=== PATIENT | male | born 1970 | race Caucasian/White ===

== ENCOUNTER 2024-11-13 19:48 | Emergency (ER) | payer OTHER, SELFPAY ==
[2024-11-13] VITALS (12 sets, daily range): BP systolic 103–155; BP diastolic 63–98; PULSE 97–116; RESP 14–23; TEMP 37; O2SAT 92–100; BMI 39.5
--- NOTE | 2024-11-13 20:10 | RAD_ITS ---
PROCEDURE: CHEST 1 VIEW (PORTABLE) 11/13/2024 REASON FOR EXAM: CHEST PAIN TECHNIQUE: Frontal view of the chest. COMPARISON: None. FINDINGS: Hardware: Partially visualized ACDF hardware. Heart: The heart size is normal. Lungs: Elevation of the right hemidiaphragm. No focal consolidation, pleural effusion or pneumothorax. Bones: Degenerative changes are identified within the thoracic spine. RAD/Chest 1 View (Portable) IMPRESSION: No Acute Findings. Reading Location: [id number]
--- NOTE | 2024-11-13 20:14 | EKG12_ITS ---
Test Reason : CP Blood Pressure : */* mmHG Vent. Rate : 110 BPM Atrial Rate : 110 BPM P-R Int : 142 ms QRS Dur : 94 ms QT Int : 332 ms P-R-T Axes : 56 57 62 degrees QTcB Int : 449 ms Sinus tachycardia Otherwise normal ECG Confirmed by Rafi Huddleston ([id number]), offline editor JONNA VICENTE ([id number]) on 11/16/2024 11:51:44 AM Referred By: Confirmed By: Rafi Huddleston
--- NOTE | 2024-11-13 20:20 | PCA ---
no old ekg
[2024-11-13 20:35] LABS: Absolute Neutrophil Count 4.2 X10^3/uL (2.0-7.7); Basophil# 0.04 X10^3/uL; Basophil% 0.5 % (0-1); Eosinophil# 0.23 X10^3/uL; Eosinophils% 3.2 % (0-5); Hematocrit 41.8 % (40-54); Hemoglobin 14.9 g/dL (13.0-16.5); Lymphocyte % 30.2 % (19-41); Mean Corp Hgb Conc 35.6 g/dL (32-36); Mean Corpuscular Hgb 29.9 pg (27.0-32.0); Mean Corpuscular Volume 83.9 fL (80-94); Mean Platelet Vol. 9.9 fl (6.2-12.0); Monocyte% 8.2 % (0-10); NRBC Flagged by Analyzer 0 % (0-5); Neutrophil # 4.18 X10^3/uL (2.7-7.7); Neutrophil % 57.5 % (47-70); Platelet Count 313 K/mm3 (150-450); RBC Distribution Width CV 12.1 % (11.6-14.6); RBC Distribution Width SD 36.6 fl (35.1-43.9); Red Blood Count 4.98 M/mm3 (4.6-6.2); White Blood Count 7.3 K/mm3 (4.4-11.0)
[2024-11-13 20:39] LABS: Anion Gap 18 (5-15); BUN 12 mg/dL (4-19); BUN/Creat Ratio 11.5 RATIO (10-20); Calcium,Total 9.3 mg/dL (7.6-11.0); Carbon Dioxide 21.2 mmol/L (21.0-32.0); Chloride 101 mmol/L (98-108); Creatinine, Serum 1.03 mg/dL (0.70-1.20); EST Glomerular Filtration Rate 87 (>60); Estimated Creatinine Clearance 106.81 ml/min (50-250); Glucose 176 mg/dL (70-99); Potassium 4.2 mmol/L (3.3-5.1); Sodium Level 140 mmol/L (133-145); Troponin T High Sensitivity < 6 ng/L (<=22)
--- NOTE | 2024-11-13 21:28 | CT_ITS ---
PROCEDURE: CTA CHEST W/WO CONTRAST 11/13/2024 REASON FOR EXAM: PULMONARY EMBOLISM TECHNIQUE: CTA axial imaging of the chest with intravenous contrast. Coronal and Sagittal reconstruction series were provided. 3D, 3D post processing, 3D reconstructions, Maximum intensity projection (MIPs) Volume rendering and Shaded surface rendering was provided. PATIENT PREPARATION: Per protocol CONTRAST: Isovue 370 VOLUME: 100mL One or more dose reduction techniques were used (e.g., Automated exposure control, adjustment of the mA and/or kV according to patient size, use of iterative reconstruction technique). RADIATION DOSE SUMMARY: DLP: 3000 mGycm COMPARISON: None. FINDINGS: Hardware: Partially visualized ACDF hardware. Lymph nodes: No axillary, mediastinal or hilar lymphadenopathy. Heart: Normal in size without pericardial effusion. The great vessels are normal in caliber. Minimal coronary artery calcifications. Minimal calcific plaque of the thoracic aorta. Pulmonary Vessels: Visualization is limited by timing of contrast bolus. No central filling defect within the segmental pulmonary arteries. Lungs and Airways: The central airways are patent. Bibasilar atelectasis/scarring. No suspicious pulmonary nodule. No pleural effusion or pneumothorax. Upper Abdomen: Prior cholecystectomy. Bones: Bone windows are unremarkable. CT/CTA Chest W/WO Contrast IMPRESSION: LIMITED. NO LARGE CENTRAL PULMONARY EMBOLI. Reading Location: [id number]
--- NOTE | 2024-11-13 21:28 | CT_ITS ---
PROCEDURE: CTA HEAD AND NECK W/ CONTRAST 11/13/2024 REASON FOR EXAM: HEADACHE/R ARM/LEG NUMBNESS TECHNIQUE: CTA HEAD AND NECK W/ CONTRAST Multiplanar Sagittal and Coronal images were obtained. 3D post processing was performed CONTRAST: Isovue 370 VOLUME: 100 mL One or more dose reduction techniques were used (e.g., Automated exposure control, adjustment of the mA and/or kV according to patient size, use of iterative reconstruction technique). RADIATION DOSE SUMMARY: DLP: 900 mGycm COMPARISON: None. FINDINGS: Non-contrast CT head: No acute intracranial hemorrhage or herniation. Minimal scattered supratentorial white matter hypodensities. The mohr-white matter interfaces are otherwise maintained. No ventriculomegaly. The basal cisterns are patent. Unremarkable bilateral orbits, paranasal sinuses and mastoid air cells. No acute calvarial fracture or scalp hematoma. CTA neck: Three-vessel aortic arch with moderate mixed atherosclerotic plaque of the left subclavian artery approximately 1.5 cm distal to its origin. The right cervical carotid artery is widely patent without focal narrowing by NASCET criteria. Moderate mixed plaque of the left cervical ICA resulting in 50% stenosis by NASCET criteria. Visualization of the bilateral vertebral arteries is limited due to streak artifact from ACDF hardware. The right vertebral artery is grossly patent without obvious stenosis or narrowing. Occlusion of the left vertebral artery just distal to its origin, with non-opacification throughout the majority of the left V2 segment. Severe multifocal stenosis with alternating areas of thread-like opacification throughout the distal V2-V4 segments. CTA head: The bilateral anterior, middle and posterior cerebral arteries are widely patent. Visualization of the more distal arteries is limited by timing of contrast bolus. Major venous structures: Unremarkable. Other findings: Cervical spondylosis with prior ACDF hardware. Prominent bilateral cervical nodes, likely reactive. CT/CTA Head AND Neck W/ Contrast IMPRESSION: 1. No acute finding on noncontrast CT head. 2. 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 If clinically indicated, MRI head could be obtained for further evaluation. 3. At least 50% stenosis of the left cervical ICA by NASCET criteria. 4. Moderate narrowing of the left subclavian artery just distal to its origin. Reading Location: [facility]
[2024-11-13 21:53] LABS: Mucous, Urine 0 SEEN /hpf (<or=2+); Red Blood Cells-Urine 0 SEEN /hpf (0-5)
[2024-11-13 21:56] LABS: AST(SGOT) 41 U/L (<=37); Alanine Aminotransfer ALT/SGPT 35 U/L (<=46); Albumin, Serum 4.3 g/dL (3.5-5.0); Alkaline Phosphatase 119 U/L (40-129); Globulin 2.9 g/dL (2.2-4.2); Protein, Total 7.2 g/dL (5.9-8.4); Total Bilirubin 0.28 mg/dL (0.00-1.30)
[2024-11-13 22:09] LABS: Alcohol, Blood (Medical)-Serum < 10.1 mg/dL (<=10.0)
[2024-11-13 22:09] LABS: Amphetamine Urine NEGATIVE (<1000 ng/mL); Barbiturate Urine NEGATIVE (< 200 ng/mL); Benzodiazepine Urine NEGATIVE (< 200 ng/mL); Buprenorphine Urine NEGATIVE (< 200 ng/mL); Cocaine Urine NEGATIVE (< 300 ng/mL); Fentanyl, Urine NEGATIVE; Methadone Urine NEGATIVE (< 300 ng/mL); Opiates Urine NEGATIVE (< 300 ng/mL); Oxycodone, Urine NEGATIVE (< 100 ng/mL); PCP Urine NEGATIVE (< 25 ng/mL); THC Urine NEGATIVE (< 50 ng/mL)
[2024-11-13 22:11] LABS: Color, Urine Yellow (Yellow); Glucose, Dipstick Normal (Normal); Ketone-Dipstick 50 mg/dl (Negative); Leukocyte Esterase-Dipstick Negative /ul (Negative); Nitrite-Dipstick Negative (Negative); Occult Blood-Urine Negative /ul (Negative); Protein-Dipstick 15 mg/dl (Negative); Urine Bilirubin Dipstick Negative (Negative); Urine Clarity Clear (Clear); Urine Urobilinogen Normal (Normal)
[2024-11-13 22:17] LABS: Magnesium 1.9 mg/dL (1.5-2.2)
[2024-11-13 22:27] LABS: Pro- Brain NATRIURETIC PEPTIDE < 36 pg/mL (<=900)
[2024-11-13 22:32] LABS: Bacteria 1+ /hpf (None Seen); Squamous Epithelial Cells - UA 0-5 SEEN /hpf (0-5); White Blood Cells 0-5 SEEN /hpf (0-5)
[2024-11-13 22:39] LABS: Troponin T High Sens 2 HR < 6 ng/L (<=22)
--- NOTE | 2024-11-14 00:18 | EX.ED.DYSGE1 ---
HPI History of Present Illness Chief Complaint: Chest Pain Informant: patient, spouse/S.O. and family Narrative Narrative: 54-year-old male presenting to the emergency room with a chief complaint of right arm and leg paresthesias and swelling. Patient has was visiting the area doing some camping and he lives in the [facility]. States the was having a normal weekend. This morning he hydrated quite well. [place] the [place]. Drank approximately 10 beers. Went back to the camper and was on his way to friends for dinner he began to have tingling in his right arm and right leg. Patient states that his hands feel significantly swollen when he did take his wedding ring off. No swelling of his feet. He denies any arm or leg weakness. No speech difficulties. He notes he chronically has some back discomfort but is not any different than normal. No specific chest pain or shortness of breath. He notes his heart rate and blood pressure are elevated. [facility] Medical History Scarring of lung Allergy/AdvReac Type Severity Reaction Status Date / Time No Known Allergies Allergy Verified 11/13/24 19:49 Social History Smoking Status: Never smoker ROS ROS ED Constitutional Constitutional ED: Denies chills, fever(s) or weight loss Eyes Eyes: Denies change in vision or diplopia ENT ENT ED: Denies ear pain, rhinorrhea or sore throat Cardiovascular Cardiovascular: Reports racing heartbeat; Denies chest pain, orthopnea or palpitations Respiratory/Chest Respiratory/Chest: Denies cough, dyspnea or orthopnea Gastrointestinal Gastrointestinal: Denies abdominal pain, diarrhea, nausea or vomiting Genitourinary Genitourinary ED: Denies dysuria, hematuria or urinary frequency Musculoskeletal Musculoskeletal: Reports other Details: Arm and leg swelling ; Denies arthralgias or myalgias Integumentary Denies abscess or rash Neurologic Neurologic: Reports paresthesias; Denies headache(s) or weakness Psychiatric Psychiatric: Denies anxiety, depression, suicidal ideation or suicidal thoughts Endocrine Endocrinology: Denies polydipsia, polyphagia or polyuria Allergic/Immunologic Allergic/Immunologic ED: Denies mouth swelling, tongue swelling or urticaria EXAM Physical Exam Const Vital Signs: 11/13/24 19:49 11/13/24 20:06 11/13/24 20:16 Temperature 98.6 F Temperature Source Oral Pulse Rate 116 H Respiratory Rate 18 Respiratory Pattern Normal Blood Pressure 148/98 H Blood Pressure Mean 114 Pulse Ox 96 Oxygen Delivery Method Room Air Room Air 11/13/24 20:43 11/13/24 20:45 11/13/24 21:00 Temperature Temperature Source Pulse Rate 97 105 H 107 H Respiratory Rate 14 20 H 17 Respiratory Pattern Blood Pressure 152/83 H 147/82 H Blood Pressure Mean 100 99 Pulse Ox 92 96 95 Oxygen Delivery Method 11/13/24 21:30 11/13/24 21:30 11/13/24 21:45 Temperature Temperature Source Pulse Rate 108 H Respiratory Rate 17 Respiratory Pattern Blood Pressure 155/73 H 155/73 H 103/63 Blood Pressure Mean 95 95 76 Pulse Ox 100 Oxygen Delivery Method 11/13/24 21:45 11/13/24 22:00 11/13/24 22:15 Temperature Temperature Source Pulse Rate 112 H 108 H Respiratory Rate 23 H 20 H Respiratory Pattern Blood Pressure 103/63 139/70 H 151/76 H Blood Pressure Mean 76 87 94 Pulse Ox 95 96 Oxygen Delivery Method 11/13/24 22:30 11/13/24 22:45 11/13/24 23:00 Temperature Temperature Source Pulse Rate 104 H 100 Respiratory Rate 19 H 21 H Respiratory Pattern Blood Pressure 142/71 H 147/73 H 138/78 H Blood Pressure Mean 90 92 95 Pulse Ox 95 95 Oxygen Delivery Method 11/13/24 23:37 Temperature 98.6 F Temperature Source Pulse Rate 100 Respiratory Rate 16 Respiratory Pattern Blood Pressure 154/78 H Blood Pressure Mean 103 Pulse Ox 99 Oxygen Delivery Method Positive well nourished and well developed General Appearance ED: well developed HEENT Reports normocephalic, head/scalp atraumatic and moist mucous membranes Eyes PERRL and EOMs intact bilaterally Neck no lymphadenopathy, supple and no JVD Resp normal respiratory effort and clear to auscultation bilaterally Cardio regular rate, regular rhythm and no murmurs Rate: tachycardic GI normal to inspection, nondistended, normoactive bowel sounds and non-tender Palpation: soft Back/Spine no CVA tenderness and normal ROM Extremity General Extremety ED: Yes edema General Extremity: edema bilateral (Nonpitting edema is noted) upper extremity and lower extremity Neuro oriented x3, CN's II-XII intact bilaterally and no sensory deficits noted Neuro Narrative: NIH is 0 Sensorium / Orientation: alert Motor Exam: strength 5/5 throughout Psych mental status grossly normal Mood & Affect: Negative for depressed or tearful Skin no rashes or lesions noted and no wounds MDM MDM MDM Narrative Medical decision making narrative: Differential diagnosis includes but not limited to aortic dissection carotid dissection aneurysm intracranial hemorrhage/hematoma electrolyte abnormalities acute kidney injury CHF Basic blood work was obtained essentially negative. Glucose is noted to be elevated at 176. 2 sets of cardiac enzymes are negative. BNP is 36. Normal electrolytes. Urinalysis with 50 ketones no overt infection. Urine toxicology is negative. Ethyl alcohol level is 10.1. My independent interpretation of the chest x-ray is no acute process. CTA of the chest and CTA of the head and neck was obtained read by radiology reviewed by myself. I do not see an obvious cause for the patient's symptomology off of those images. I spoke with the patient and his family. He is doing well. I do wonder if in the process of hydrating and then consuming 10 beers if he had fluid shifts and is resulting in edema and this was resulting in the paresthesias. I do not feel strongly he needs to aggressively diurese. I would recommend no further alcohol and resuming a normal diet low in salt. Patient is comfortable with this plan. I urged them that if he would develop new or worsening or concerning symptoms to seek evaluation in the emergency department setting. He is planning on following up with his primary care doctor later this week. Patient, his , and family are comfortable with this plan. History & Record Review Discussion w/independent historian: Patient and Family Additional record(s) reviewed:: No prior records Lab Data Attestation: I reviewed the patient's lab results. Labs: Laboratory Results - last 24 hr 11/13/24 11/13/24 11/13/24 20:10 21:35 22:15 WBC 7.3 RBC 4.98 Hgb 14.9 Hct 41.8 MCV 83.9 MCH 29.9 MCHC 35.6 RDW Std Deviation 36.6 RDW Coeff of [place] 12.1 Plt Count 313 MPV 9.9 Immature Gran % (Auto) 0.400 Neut % (Auto) 57.5 Lymph % (Auto) 30.2 [place] % (Auto) 8.2 Eos % (Auto) 3.2 Baso % (Auto) 0.5 Absolute Neuts (auto) 4.2 Absolute Lymphs (auto) 2.20 Nucleated RBC % 0 Sodium 140 Potassium 4.2 Chloride 101 Carbon Dioxide 21.2 Anion Gap 18 H BUN 12 Creatinine 1.03 Estim Creat Clear Calc 106.81 Est GFR (MDRD) Non-Af 87 BUN/Creatinine Ratio 11.5 Glucose 176 H Calcium 9.3 Magnesium 1.9 Total Bilirubin 0.28 Direct Bilirubin 0.10 AST 41 H ALT 35 Alkaline Phosphatase 119 Troponin T High Sens < 6 Troponin T Hi Sens 2 Hr < 6 NT pro BNP II < 36 Total Protein 7.2 Albumin 4.3 Globulin 2.9 Urine Color Yellow Urine Clarity Clear Urine pH 6.0 Ur Specific [place] 1.020 Urine Protein 15 H Urine Glucose (UA) Normal Urine Ketones 50 H Urine Occult Blood Negative Urine Nitrite Negative Urine Bilirubin Negative Urine Urobilinogen Normal Ur Leukocyte Esterase Negative Urine RBC 0 SEEN Urine WBC 0-5 SEEN Ur Squamous Epith Cells 0-5 SEEN Urine Bacteria 1+ Urine Mucus 0 SEEN Urine Opiates Screen NEGATIVE U Buprenorphine Qual NEGATIVE Ur Oxycodone Screen NEGATIVE Urine Methadone Screen NEGATIVE Urine Fentanyl Screen NEGATIVE Ur Barbiturates Screen NEGATIVE Ur Phencyclidine Scrn NEGATIVE Ur Amphetamines Screen NEGATIVE U Benzodiazepines Scrn NEGATIVE Urine Cocaine Screen NEGATIVE U Cannabinoids Screen NEGATIVE Ethyl Alcohol < 10.1 Radiography Diagnostic Testing: Clinical Impression(s) from Imaging Studies Chest X-Ray 11/13/24 20:10 IMPRESSION: No Acute Findings. Reading Location: [facility] Chest CTA 11/13/24 21:28 IMPRESSION: LIMITED. NO LARGE CENTRAL PULMONARY EMBOLI. Reading Location: [facility] Head/Neck CTA 11/13/24 21:28 IMPRESSION: 1. No acute finding on noncontrast CT head. 2. Multifocal stenosis and occlusion of the left vertebral artery throughout the V2-V4 segments, indeterminate in chronicity. If clinically indicated, MRI head could be obtained for further evaluation. 3. At least 50% stenosis of the left cervical ICA by NASCET criteria. 4. Moderate narrowing of the left subclavian artery just distal to its origin. Reading Location: [facility] EKG Initial EKG: Attestation: I personally reviewed and interpreted this EKG as follows: Comments: Sinus tachycardia 110 bpm. Discharge Plan Triage Chief Complaint: Chest Pain ED Provider: Chris Connell Dx/Rx/DC Orders Clinical Impression: Paresthesias, Edema, peripheral Instructions: ED Peripheral Edema, Bilateral, ED Paraesthesias Primary Care Provider: Care Physician,No Primary Referrals: Care Physician,No Primary [Primary Care Provider] - Activity Restrictions/Additional Instructions: Please follow-up with your primary doctor in 3 to 5 days. If new symptoms develop or you have concerns please seek evaluation for your symptoms. I have given you a copy of your studies that we performed today so you can take them to your doctor. Print Language: Luxembourgish Disposition Disposition: Home, Self Care Discharge Date/Time: 11/13/24 23:38 NIHSS NIHSS 1a. Level of Consciousness: 0 - Alert; keenly responsive 1b. LOC Questions: 0 - Answers BOTH questions correctly 1c. LOC Commands: 0 - Performs BOTH tasks correctly 3. Visual: 0 - No visual loss 4. Facial Palsy: 0 - Normal symmetrical movements 5a. Left Arm: 0 - No drift; arm holds 90 (or 45) degrees for full 10 seconds 5b. Right Arm: 0 - No drift; arm holds 90 (or 45) degrees for full 10 seconds 6a. Left Le - No drift; leg holds 30-degree position for full 5 seconds 6b. Right Le - No drift; leg holds 30-degree position for full 5 seconds 7. Limb Ataxia: 0 - Absent 8. Sensory: 0 - Normal; no sensory loss 9. Best Language: 0 - No aphasia; normal 10. Dysarthria: 0 - Normal 11. Extinction and Inattention: 0 - No abnormality Total: 0 Stroke Questions Stroke Team Activated: No
== END 2024-11-13 23:38 | disposition home or self-care (01) ==
PROVIDERS: Emergency Provider Emergency Medicine; Visit Provider Emergency Medicine
DX: R20.2 Paresthesia of skin (principal); R60.9 Edema, unspecified
CPT/HCPCS: 70496; 70498; 71045; 71275; 80048; 80076; 80307; 81001; 82077; 83735; 83880; 84484; 85025; 93005; 99283; Q9967; A4216